=== PATIENT | male | born 1950 | race Caucasian/White ===

== ENCOUNTER → 2019-02-17 | Outpatient (CLI) | payer OTHER, SELFPAY ==
--- NOTE | 2019-02-17 | DI.ECHO.S_ITS ---
[facility] +---------+ : : [address] : [place] : : : : [phone] : : : : Phone: [phone]+ Echocardiogram Report + + :Name: SHAQUILLE VERA Study Date: 02/17/2019 Height: 70 in : :[facility] Weight: 170 lb : : Gender: Male BSA: 1.9 m2 : :: 1950 Age: 68 yrs BP: 126/84 mmHg: :Reason For Study: CAD : : Performed By: Temp Staff : :Referring: [email or web address] : + + Interpretation Summary Left ventricular systolic function is mild to moderately reduced with the ejection fraction estimated to be 45-50% with mild to moderate global hypokinesis and a mild dyssynchronous contraction pattern, consistent with a conduction abnormality, but no focal wall motion abnormalities. The left ventricle is normal in size. Diastolic function could not be accurately assessed due to contradictory data. The right ventricle is normal size and systolic function is borderline reduced. Pulmonary artery pressures cannot be estimated because of the lack of a measurable TR jet velocity but the IVC suggests a CVP of around 15 mmHg. The left atrium is mildly dilated. There is mild mitral regurgitation and moderate pulmonic regurgitation. The aortic root and ascending aorta are mildly enlarged. The patient was in sinus bradycardia with heart rates between 36-48 bpm during the exam. Procedure: A two-dimensional transthoracic echocardiogram with color flow and Doppler was performed. The study quality was technically good. There is no prior echocardiogram noted for this patient. The patient was in sinus bradycardia with heart rates between 36-48 bpm during the exam. Left Ventricle: The left ventricle is normal in size. There is normal left ventricular wall thickness. Left ventricular systolic function is mild to moderately reduced. The ejection fraction is estimated to be 45-50%. There is mild to moderate global hypokinesis of the left ventricle. There is a mild dyssynchronous contraction pattern, consistent with a conduction abnormality. There are no focal wall motion abnormalities. Diastolic function could not be accurately assessed due to contradictory data. Right Ventricle: The right ventricle is normal size. Right ventricular systolic function is borderline reduced. Atria: The left atrium is mildly dilated. Right atrial size is normal. The interatrial septum is intact with no evidence for an atrial septal defect. Mitral Valve: The mitral valve is normal in structure and function. There is mild mitral regurgitation. Aortic Valve: The aortic valve is trileaflet. The aortic valve opens well. There is trace aortic regurgitation. Tricuspid Valve: The tricuspid valve is normal in structure and function. There is trace tricuspid regurgitation. Pulmonary artery pressures cannot be estimated because of the lack of a measurable TR jet velocity but the IVC suggests a CVP of around 15 mmHg. Pulmonic Valve: The pulmonic valve is not well seen, but is grossly normal. There is moderate pulmonic regurgitation. Great Vessels: The aortic root is mildly dilated. The ascending aorta is mildly enlarged. The pulmonary artery is normal size. The IVC is dilated (diameter is greater than 2.1 cm) and it collapses less than 50% with a sniff. This suggests a high right atrial pressure of 15 mm Hg. Pericardium/ Pleura There is no pericardial effusion. There is no pleural effusion. MMode/2D Measurements & Calculations LVIDd: 5.2 cm LVOT diam: 2.5 cm LVIDs: 4.0 cm Ao root diam: 4.1 cm FS: 23.2 % Aortic Jxn: 3.0 cm EPSS: 1.0 cm asc Aorta Diam: 3.5 cm IVSd: 1.0 cm LVPWd: 1.1 cm LV whittaker. diameter/BSA (cm/m^2): 2.7 LV sys. diameter/BSA (cm/m^2): 2.1 LA A2 area: 22.9 cm2 RA long axis: 5.3 cm LA A4 area: 24.7 cm2 RA area: 15.3 cm2 LA length (vol): 6.2 cm RA vol: 37.3 ml LA vol: 78.1 ml RA : 19.1 ml/m2 LA vol index: 40.1 ml/m2 TAPSE: 2.4 cm Doppler Measurements & Calculations Ao V2 max: 97.2 cm/sec LVOT Max Ravi: 99.6 cm/sec Ao V2 mean: 64.9 cm/sec LV V1 max P.0 mmHg Ao max P.8 mmHg LV V1 VTI: 21.8 cm Ao mean P.0 mmHg BONITA(I,D): 4.8 cm2 Ao V2 VTI: 22.1 cm BONITA(V,D): 5.0 cm2 sev ratio: 0.99 BONITA indexed to BSA (cm^2/m^2): 2.5 MV E max ravi: 36.1 cm/sec PA V2 max: 60.7 cm/sec MV A max ravi: 54.6 cm/sec PA V2 mean: 45.2 cm/sec MV E/A: 0.66 PA mean P.91 mmHg Med Peak E' Ravi: 6.3 cm/sec PA Accel Time: 0.14 sec E/E' med: 5.7 Lat Peak E' Ravi: 9.8 cm/sec E/E' lat: 3.7 E/e' average: 4.7 MV dec time: 0.39 sec SV(BREANN): 106.1 ml Reading Physician:ANTONIO
== END ==
LOC: ECHO 06:53
PROVIDERS: PCP Physician Assistant; Visit Provider Nurse Practitioner
DX: I34.0 Nonrheumatic mitral (valve) insufficiency (principal); I37.1 Nonrheumatic pulmonary valve insufficiency; I77.89 Other specified disorders of arteries and arterioles; R00.1 Bradycardia, unspecified; I25.10 Atherosclerotic heart disease of native coronary artery without angina pectoris
CPT/HCPCS: 93306

== ENCOUNTER → 2019-10-04 13:59 | Outpatient (CLI) | payer MEDICARE, OTHER, SELFPAY | PROVIDERS: PCP Physician Assistant; Referring Provider Physician Assistant; Visit Provider Physician Assistant | DX: E29.1 Testicular hypofunction (principal); Z85.46 Personal history of malignant neoplasm of prostate; Z79.52 Long term (current) use of systemic steroids; Z79.899 Other long term (current) drug therapy; Z87.891 Personal history of nicotine dependence | CPT/HCPCS: 77080 ==

== ENCOUNTER → 2020-03-23 09:01 | Outpatient (CLI) | payer MEDICARE, OTHER, SELFPAY ==
[2020-03-23 10:03] LABS: Alanine Aminotransferase 27 IU/L (<50); Albumin 4.7 g/dL (3.5-5.0); Albumin Globulin Ratio 1.5 (1.0-2.8); Alkaline Phosphatase 74 U/L (38-126); Aspartate Aminotransferase 32 IU/L (17-59); Bilirubin Total 0.6 mg/dL (0.2-1.3); Blood Urea Nitrogen 16 mg/dL (9-20); Calcium 9.7 mg/dL (8.4-10.2); Carbon Dioxide 34 mmol/L (22-32); Chloride 101 mmol/L (98-107); Cholesterol 208 mg/dL (140-199); Estimated Glomerular Filt Rate > 60.0 mL/min (>60); Globulin 3.2 g/dL (1.7-4.1); Glucose 91 mg/dL (80-110); HDL Cholesterol 49 mg/dL (40-60); HEMOLYSIS < 15 (0-50); LDL Cholesterol Calculated 129 mg/dL (<100); Potassium 4.3 mmol/L (3.4-5.1); Sodium 139 mmol/L (137-145); Total Protein 7.9 g/dL (6.3-8.2); Triglycerides 149 mg/dL (35-150)
[2020-03-23 10:20] LABS: Free T3, Triiodothyronine Free 4.65 pg/mL (2.77-5.27)
[2020-03-23 10:26] LABS: Progesterone, Total 0.76 ng/mL
[2020-03-23 10:28] LABS: Cortisol AM (Before 10AM) 8.35 ug/dL (4.46-22.7)
[2020-03-23 12:52] LABS: Thyroid Stimulating Hormone 1.58 uIU/mL (0.47-4.68)
[2020-03-24 04:36] LABS: Apolipoprotein A1 153 mg/dL (101-178); Apolipoprotein B 105 mg/dL (<90)
[2020-03-24 06:23] LABS: Dehydroepiandrosterone Sulfate 53.4 ug/dL (30.9-295.6)
[2020-03-26 13:36] LABS: Percent Free Testosterone 2.08 % (1.50-4.20); Testosterone Free 8.09 ng/dL (5.00-21.00); Testosterone Total 388.8 ng/dL (264.0-916.0)
== END ==
PROVIDERS: PCP Physician Assistant; Referring Provider Naturopath; Visit Provider Naturopath
DX: E03.9 Hypothyroidism, unspecified (principal); Z79.52 Long term (current) use of systemic steroids; E29.1 Testicular hypofunction
CPT/HCPCS: 36415; 80053; 80061; 82172; 82533; 82627; 84144; 84402; 84403; 84443; 84481

== ENCOUNTER → 2020-09-12 12:32 | Outpatient (CLI) | payer MEDICARE, OTHER, SELFPAY ==
[2020-09-12 13:12] LABS: Alanine Aminotransferase 28 IU/L (<50); Albumin 4.4 g/dL (3.5-5.0); Albumin Globulin Ratio 1.6 (1.0-2.8); Alkaline Phosphatase 62 U/L (38-126); Aspartate Aminotransferase 43 IU/L (17-59); Bilirubin Total 0.9 mg/dL (0.2-1.3); Blood Urea Nitrogen 15 mg/dL (9-20); Calcium 9.6 mg/dL (8.4-10.2); Carbon Dioxide 31 mmol/L (22-32); Chloride 101 mmol/L (98-107); Cholesterol 155 mg/dL (140-199); Estimated Glomerular Filt Rate > 60.0 mL/min (>60); Globulin 2.7 g/dL (1.7-4.1); Glucose 89 mg/dL (80-110); Potassium 4.5 mmol/L (3.4-5.1); Sodium 138 mmol/L (137-145); Total Protein 7.1 g/dL (6.3-8.2); Triglycerides 123 mg/dL (35-150)
[2020-09-12 13:13] LABS: HDL Cholesterol 56 mg/dL (40-60); HEMOLYSIS < 15 (0-50); LDL Cholesterol Calculated 74 mg/dL (<100)
[2020-09-12 13:39] LABS: Prostate Specific Antigen 7.35 ng/mL (0.10-4.00); Thyroid Stimulating Hormone 1.09 uIU/mL (0.47-4.68)
== END ==
PROVIDERS: PCP Physician Assistant; Referring Provider Physician Assistant; Visit Provider Physician Assistant
DX: E03.9 Hypothyroidism, unspecified (principal); C61 Malignant neoplasm of prostate; Z13.1 Encounter for screening for diabetes mellitus; Z13.6 Encounter for screening for cardiovascular disorders
CPT/HCPCS: 36415; 80053; 80061; 84153; 84443

== ENCOUNTER → 2021-02-01 11:28 | Outpatient (CLI) | payer MEDICARE, OTHER, SELFPAY ==
[2021-02-01 14:19] LABS: COVID-19 CEPHEID PCR (VTM/NP) Negative (Negative)
== END ==
PROVIDERS: PCP Physician Assistant; Visit Provider Nurse Practitioner Family
DX: Z20.822 Contact with and (suspected) exposure to COVID-19 (principal)
CPT/HCPCS: U0003

== ENCOUNTER → 2021-03-15 10:55 | Outpatient (CLI) | payer MEDICARE, OTHER, SELFPAY ==
[2021-03-15 12:46] LABS: Prostate Specific Antigen < 0.064 ng/mL (0.10-4.00)
[2021-03-20 08:47] LABS: Percent Free Testosterone 2.95 % (1.50-4.20); Testosterone Free 6.95 ng/dL (5.00-21.00); Testosterone Total 235.6 ng/dL (264.0-916.0)
== END ==
PROVIDERS: Nurse Practitioner Adult Health; PCP Physician Assistant; Referring Provider Urology; Visit Provider Urology
DX: C61 Malignant neoplasm of prostate (principal)
CPT/HCPCS: 36415; 84153; 84402; 84403

== ENCOUNTER → 2021-04-30 13:49 | Outpatient (CLI) | payer MEDICARE, OTHER, SELFPAY ==
[2021-04-30 16:10] LABS: Testosterone 177 ng/dL (71.8-623)
[2021-04-30 16:11] LABS: Prostate Specific Antigen < 0.064 ng/mL (0.10-4.00)
== END ==
PROVIDERS: PCP Physician Assistant; Referring Provider Urology; Visit Provider Urology
DX: C61 Malignant neoplasm of prostate (principal)
CPT/HCPCS: 36415; 84153; 84403

== ENCOUNTER → 2022-01-27 09:37 | Outpatient (CLI) | payer MEDICARE, OTHER, SELFPAY ==
[2022-01-27 11:44] LABS: Testosterone 512 ng/dL (71.8-623)
[2022-01-27 12:20] LABS: Prostate Specific Antigen < 0.064 ng/mL (0.10-4.00)
== END ==
PROVIDERS: PCP Physician Assistant; Referring Provider Urology; Visit Provider Urology
DX: C61 Malignant neoplasm of prostate (principal)
CPT/HCPCS: 36415; 84153; 84403

== ENCOUNTER → 2022-11-18 09:36 | Outpatient (CLI) | payer MEDICARE, OTHER, SELFPAY ==
[2022-11-18 12:36] LABS: Prostate Specific Antigen < 0.064 ng/mL (0.10-4.00)
[2022-11-18 12:37] LABS: Testosterone 288 ng/dL (71.8-623)
== END ==
PROVIDERS: PCP Physician Assistant; Referring Provider Urology; Visit Provider Urology
DX: C61 Malignant neoplasm of prostate (principal)
CPT/HCPCS: 36415; 84153; 84403

== ENCOUNTER → 2023-01-29 11:10 | Outpatient (CLI) | payer MEDICARE, OTHER, SELFPAY ==
[2023-01-29 13:38] LABS: Prostate Specific Antigen < 0.064 ng/mL (0.10-4.00)
[2023-01-29 13:40] LABS: Testosterone 128 ng/dL (71.8-623)
== END ==
PROVIDERS: PCP Physician Assistant; Referring Provider Urology; Visit Provider Urology
DX: C61 Malignant neoplasm of prostate (principal)
CPT/HCPCS: 36415; 84153; 84403

== ENCOUNTER → 2023-04-20 07:03 | Outpatient (CLI) | payer MEDICARE, OTHER, SELFPAY ==
[2023-04-20 07:22] LABS: Add Manual Diff / Slide Review NO; Basophils Absolute Auto 0 /uL (0-100); Basophils Percent Auto 0.5 % (0-2); Eosinophils Absolute Auto 100 /uL (0-450); Eosinophils Percent Auto 1.6 % (2-4); Hematocrit 43.9 % (41-53); Hemoglobin 14.9 g/dL (13.5-17.5); Lymphocytes Absolute Auto 1500 /uL (1100-4500); Lymphocytes Percent Auto 32.3 % (25-40); Mean Corpuscular Hemoglobin 31.9 PG (26-34); Mean Corpuscular Volume 93.9 fL (80-100); Monocytes Absolute Auto 400 /uL (0-900); Monocytes Percent Auto 9.5 % (3-14); Neutrophils Absolute Auto 2500 /uL (1500-7000); Neutrophils Percent Auto 56.1 % (50-75); Platelet Count 175 X10^3/uL (150-400); Red Blood Cell Count 4.68 X10^6/uL (4.5-5.9); Red Cell Distribution Width 14.4 % (11.6-14.8); White Blood Cell Count 4.5 X10^3/uL (4.5-11.0)
[2023-04-20 07:39] LABS: Alanine Aminotransferase 34 IU/L (<50); Albumin 4.5 g/dL (3.5-5.0); Albumin Globulin Ratio 1.5 (1.0-2.8); Alkaline Phosphatase 62 U/L (38-126); Aspartate Aminotransferase 40 IU/L (17-59); BUN Creatinine Ratio 18.1 (6-22); Bilirubin Total 0.9 mg/dL (0.2-1.3); Blood Urea Nitrogen 19 mg/dL (9-20); C-Reactive Protein Quant 0.6 mg/dL (<1.0); Calcium 9.3 mg/dL (8.4-10.2); Carbon Dioxide 29 mmol/L (22-32); Chloride 101 mmol/L (98-107); Cholesterol 118 mg/dL (140-199); Estimated Glomerular Filt Rate > 60 mL/min (>60); Glucose 87 mg/dL (80-110); HDL Cholesterol 52 mg/dL (40-60); HEMOLYSIS < 15 (0-50); LDL Cholesterol Calculated 51 mg/dL (<100); Sodium 139 mmol/L (137-145); Total Protein 7.5 g/dL (6.3-8.2); Triglycerides 74 mg/dL (35-150)
[2023-04-20 07:46] LABS: Iron 106 ug/dL (49-181)
[2023-04-20 07:53] LABS: Erythrocyte Sedimentation Rate 2 MM/HR (0-15)
[2023-04-20 07:55] LABS: Percent Iron Saturation 26 % (20-50); Total Iron Binding Capacity 411 ug/dL (261-462)
[2023-04-20 08:01] LABS: Appearance Urine UA CLEAR; Bilirubin Urine UA NEGATIVE (NEGATIVE); Color Urine UA YELLOW; Glucose Urine UA NEGATIVE (Negative); Ketones Urine UA NEGATIVE (NEGATIVE); Leukocyte Esterase Urine UA NEGATIVE (NEGATIVE); Nitrite Urine UA NEGATIVE (Negative); Occult Blood Urine UA NEGATIVE (Negative); Protein Urine UA NEGATIVE (Negative); Specific Gravity Urine UA <=1.005 (1.000-1.035); Urobilinogen Urine UA 0.2 E.U./dL (0.2)
[2023-04-20 08:04] LABS: Free T3, Triiodothyronine Free 5.41 pg/mL (2.77-5.27); Free T4, Direct Thyroxine 0.97 ng/dL (0.78-2.19)
[2023-04-20 08:07] LABS: Prostate Specific Antigen < 0.064 ng/mL (0.10-4.00)
[2023-04-20 08:08] LABS: Urine Volume 10mL (spun)
[2023-04-20 08:09] LABS: Bacteria Urine None Seen; Culture Indicated Urine Cult Not Indicated; RBC Urine None Seen (0-5/HPF); Squamous Epithelial Cell Urine None Seen (0-5/HPF); WBC Urine None Seen (0-5/HPF)
[2023-04-20 08:10] LABS: Ferritin 46 ng/mL (18-464); Testosterone 407 ng/dL (71.8-623)
[2023-04-20 08:18] LABS: Thyroid Stimulating Hormone 1.12 uIU/mL (0.47-4.68)
[2023-04-20 17:01] LABS: HIV 1 & 2 Ab/Ag 4th Gen Combo NEGATIVE (NEGATIVE)
== END ==
PROVIDERS: PCP Physician Assistant; Referring Provider Physician Assistant; Visit Provider Physician Assistant
DX: E03.9 Hypothyroidism, unspecified (principal); E29.1 Testicular hypofunction; Z85.46 Personal history of malignant neoplasm of prostate; G25.81 Restless legs syndrome; R61 Generalized hyperhidrosis
CPT/HCPCS: 36415; 80053; 80061; 81001; 82728; 83540; 83550; 84153; 84403; 84439; 84443; 84481; 85025; 85651; 86140; 87389

== ENCOUNTER → 2023-08-27 07:04 | Outpatient (CLI) | payer MEDICARE, OTHER, SELFPAY ==
[2023-08-27 08:59] LABS: Prostate Specific Antigen 0.071 ng/mL (0.10-4.00)
[2023-08-27 09:02] LABS: Testosterone 139 ng/dL (71.8-623)
== END ==
LOC: LAB 07:07
PROVIDERS: PCP Physician Assistant; Referring Provider Urology; Visit Provider Urology
DX: C61 Malignant neoplasm of prostate (principal)
CPT/HCPCS: 36415; 84153; 84403

== ENCOUNTER → 2023-10-16 07:03 | Outpatient (CLI) | payer MEDICARE, OTHER, SELFPAY ==
[2023-10-16 08:09] LABS: Alanine Aminotransferase 40 IU/L (<50); Albumin 4.4 g/dL (3.5-5.0); Albumin Globulin Ratio 1.8 (1.0-2.8); Alkaline Phosphatase 66 U/L (38-126); Aspartate Aminotransferase 41 IU/L (17-59); BUN Creatinine Ratio 14.7 (6-22); Bilirubin Total 0.7 mg/dL (0.2-1.3); Blood Urea Nitrogen 19 mg/dL (9-20); Calcium 9.4 mg/dL (8.4-10.2); Carbon Dioxide 27 mmol/L (22-32); Chloride 104 mmol/L (98-107); Cholesterol 138 mg/dL (140-199); Estimated Glomerular Filt Rate 59 mL/min (>60); Globulin 2.4 g/dL (1.7-4.1); Glucose 90 mg/dL (80-110); HDL Cholesterol 60 mg/dL (40-60); HEMOLYSIS < 15 (0-50); LDL Cholesterol Calculated 66 mg/dL (<100); Potassium 4.6 mmol/L (3.4-5.1); Sodium 138 mmol/L (137-145); Total Protein 6.8 g/dL (6.3-8.2); Triglycerides 61 mg/dL (35-150)
[2023-10-16 08:13] LABS: High Sensitivity CRP - Cardiac 0.8 mg/L (1.0-3.0)
[2023-10-16 08:40] LABS: Thyroid Stimulating Hormone 1.94 uIU/mL (0.47-4.68)
[2023-10-20 08:12] LABS: Cholesterol, Total 133 mg/dL (100-199); HDL-Cholesterol 58 mg/dL (>39); HDL-Particle (Total) 37.3 umol/L (>=30.5); LDL Particle 719 nmol/L (<1000); LDL Size 20.9 nm (>20.5); LDL-Cholsterol 62 mg/dL (0-99); LP-IR Score 39 (<=45); Small LDL- Particle 219 nmol/L (<=527); Triglycerides 60 mg/dL (0-149)
== END ==
LOC: LAB 07:04
PROVIDERS: PCP Physician Assistant; Referring Provider Internal Medicine Cardiovascular Disease; Visit Provider Internal Medicine Cardiovascular Disease
DX: E78.2 Mixed hyperlipidemia (principal); E03.9 Hypothyroidism, unspecified; I10 Essential (primary) hypertension; I65.29 Occlusion and stenosis of unspecified carotid artery
CPT/HCPCS: 36415; 80053; 80061; 83704; 84443; 86140

== ENCOUNTER → 2023-12-08 14:09 | Outpatient (CLI) | payer MEDICARE, OTHER, SELFPAY ==
[2023-12-08 16:12] LABS: Testosterone 443 ng/dL (71.8-623)
== END ==
PROVIDERS: PCP Physician Assistant; Referring Provider Physician Assistant; Visit Provider Physician Assistant
DX: E29.1 Testicular hypofunction (principal); Z85.46 Personal history of malignant neoplasm of prostate
CPT/HCPCS: 36415; 84403

== ENCOUNTER → 2024-02-05 07:10 | Outpatient (CLI) | payer MEDICARE, OTHER, SELFPAY ==
[2024-02-05 08:42] LABS: Prostate Specific Antigen 0.146 ng/mL (0.10-4.00)
[2024-02-05 08:45] LABS: Testosterone 493 ng/dL (71.8-623)
== END ==
PROVIDERS: PCP Physician Assistant; Referring Provider Urology; Visit Provider Urology
DX: C61 Malignant neoplasm of prostate (principal); N52.9 Male erectile dysfunction, unspecified
CPT/HCPCS: 36415; 84153; 84403

== ENCOUNTER → 2024-02-22 06:59 | Outpatient (CLI) | payer MEDICARE, OTHER, SELFPAY | LOC: LAB 07:00 | PROVIDERS: PCP Physician Assistant; Referring Provider Urology; Visit Provider Urology | DX: C61 Malignant neoplasm of prostate (principal) | CPT/HCPCS: 36415; 84153 ==

== ENCOUNTER → 2024-04-08 07:07 | Outpatient (CLI) | payer MEDICARE, OTHER, SELFPAY ==
[2024-04-08 08:04] LABS: Alanine Aminotransferase 45 IU/L (<50); Albumin 4.8 g/dL (3.5-5.0); Albumin Globulin Ratio 1.8 (1.0-2.8); Alkaline Phosphatase 74 U/L (38-126); Aspartate Aminotransferase 42 IU/L (17-59); Bilirubin Total 0.9 mg/dL (0.2-1.3); Blood Urea Nitrogen 16 mg/dL (9-20); Calcium 9.6 mg/dL (8.4-10.2); Carbon Dioxide 30 mmol/L (22-32); Chloride 103 mmol/L (98-107); Cholesterol 143 mg/dL (140-199); Estimated Glomerular Filt Rate > 60 mL/min (>60); Globulin 2.7 g/dL (1.7-4.1); Glucose 84 mg/dL (80-110); HDL Cholesterol 57 mg/dL (40-60); HEMOLYSIS < 15 (0-50); LDL Cholesterol Calculated 60 mg/dL (<100); Potassium 4.9 mmol/L (3.4-5.1); Sodium 139 mmol/L (137-145); Total Protein 7.5 g/dL (6.3-8.2); Triglycerides 132 mg/dL (35-150)
[2024-04-08 08:32] LABS: Thyroid Stimulating Hormone 1.76 uIU/mL (0.47-4.68)
== END ==
PROVIDERS: PCP Physician Assistant; Referring Provider Internal Medicine Cardiovascular Disease; Visit Provider Internal Medicine Cardiovascular Disease
DX: I65.29 Occlusion and stenosis of unspecified carotid artery (principal); I10 Essential (primary) hypertension; E03.9 Hypothyroidism, unspecified; E78.2 Mixed hyperlipidemia
CPT/HCPCS: 36415; 80053; 80061; 83704; 84443

== ENCOUNTER → 2024-04-12 08:25 | Outpatient (CLI) | payer MEDICARE, OTHER, SELFPAY ==
[2024-04-14 17:08] LABS: Cholesterol, Total 137 mg/dL (100-199); HDL-Cholesterol 57 mg/dL (>39); HDL-Particle (Total) 38.2 umol/L (>=30.5); Historical Reading Comment: (.); LDL Particle 707 nmol/L (<1000); LDL Size 20.3 nm (>20.5); LDL-Cholsterol 66 mg/dL (0-99); LP-IR Score 51 (<=45); Small LDL- Particle 304 nmol/L (<=527); Triglycerides 72 mg/dL (0-149)
== END ==
PROVIDERS: PCP Physician Assistant; Referring Provider Internal Medicine Cardiovascular Disease; Visit Provider Internal Medicine Cardiovascular Disease
DX: I65.29 Occlusion and stenosis of unspecified carotid artery (principal); I10 Essential (primary) hypertension; E03.9 Hypothyroidism, unspecified; E78.2 Mixed hyperlipidemia
CPT/HCPCS: 80061; 83704

== ENCOUNTER → 2024-05-18 07:11 | Outpatient (CLI) | payer MEDICARE, OTHER, SELFPAY ==
[2024-05-18 08:41] LABS: Prostate Specific Antigen 0.164 ng/mL (0.10-4.00)
[2024-05-29 18:10] LABS: Percent Free Testosterone 2.87 % (1.50-4.20); Testosterone Free 4.14 ng/dL (5.00-21.00); Testosterone Total 144.1 ng/dL (264.0-916.0)
== END ==
PROVIDERS: PCP Physician Assistant; Referring Provider Urology; Visit Provider Urology
DX: C61 Malignant neoplasm of prostate (principal)
CPT/HCPCS: 36415; 84153; 84402; 84403

== ENCOUNTER → 2024-08-22 15:11 | Outpatient (CLI) | payer MEDICARE, OTHER, SELFPAY ==
[2024-08-22 16:20] LABS: Prostate Specific Antigen 0.243 ng/mL (0.10-4.00)
[2024-08-22 16:23] LABS: Testosterone 846 ng/dL (71.8-623)
== END ==
LOC: LAB 15:15
PROVIDERS: PCP Physician Assistant
DX: C61 Malignant neoplasm of prostate (principal)
CPT/HCPCS: 36415; 84153; 84403

== ENCOUNTER → 2024-11-06 10:22 | Outpatient (CLI) | payer MEDICARE, OTHER, SELFPAY | PROVIDERS: PCP Physician Assistant; Visit Provider Nurse Practitioner Family | DX: L53.9 Erythematous condition, unspecified (principal) | CPT/HCPCS: 87070; 87075; 87205 ==

== ENCOUNTER → 2024-11-12 09:23 | Outpatient (CLI) | payer MEDICARE, OTHER, SELFPAY | PROVIDERS: PCP Physician Assistant; Visit Provider Chiropractor | DX: L03.019 Cellulitis of unspecified finger (principal) | CPT/HCPCS: 87070; 87075; 87205 ==